=== PATIENT | female | born 2000 | race African-American/Black ===

== ENCOUNTER 2018-03-01 12:02 | Emergency (ER) | payer MEDICAID, OTHER ==
[~2018-03-01] VITALS: Ht 165.1 cm; Wt 59.0 kg
--- NOTE | 2018-03-01 12:15 | Emergency Room Report ---
History of Present Illness General Chief Complaint: Female Urogenital Problems Source: Patient Present Illness HPI 17-year-old female presents to the emergency department complaining of itchy, white/yellowish vaginal discharge 3 days. Patient also reports that she felt a burning pain inside of her labia and noticed to lesions, and her vaginal wall that look like they were scabbed. Patient reports recent unprotected intercourse proximally one week ago. Patient reports that she does have some suspicion of STDs. Patient denies pain, fevers, chills, nausea, vomiting, abdominal pain, swollen tender lymph nodes or joint pain. Patient denies external genital lesions or rashes. She denies . denies urinary frequency, urgency, dysuria or hematuria. Allergies: Coded Allergies: No Known Allergies (Unverified , 03/01/18) Patient History Past Medical History: see triage record Past Surgical History: none Pertinent Family History: none Now: No Reviewed Nursing Documentation: PMH: Agreed; PSxH: Agreed Nursing Documentation-PMH Past Medical History: No Stated History Hx Asthma: Yes Review of Systems All Other Systems: negative except mentioned in HPI Physical Exam Vital Signs Date Time Temp Pulse Resp B/P (MAP) Pulse Ox O2 Delivery O2 Flow Rate FiO2 03/01/18 12:05 98.8 64 16 104/62 100 Room Air 98.8 Sp02 EP Interpretation: reviewed, normal General Appearance: no apparent distress, alert, GCS 15, non-toxic Head: normocephalic, atraumatic Eyes: bilateral eye normal inspection, bilateral eye PERRL ENT: hearing grossly normal, normal voice Neck: full range of motion Respiratory: lungs clear, normal breath sounds, speaking full sentences Cardiovascular #1: regular rate, rhythm Gastrointestinal: non tender, soft Rectal: deferred Genitourinary: normal inspection, no CVA tenderness, adnexa normal, ext genitalia/vag normal, other - milky white/yellowish vaginal d/c noted, 3 small lesions in on the vaginal wall with what appears to be dry blood. Musculoskeletal: back normal, gait/station normal, normal range of motion, non- tender Neurologic: alert, oriented x3, responsive, motor strength/tone normal, sensory intact, speech normal, grossly normal Psychiatric: judgement/insight normal Skin: normal color, no rash, warm/dry, well hydrated Lymphatic: no adenopathy Medical Decision Making PA Attestation Dr. Alvarez is my supervising Physician whom patient management has been discussed with. Diagnostic Impression: Primary Impression: Vaginitis Qualified Codes: N76.0 - Acute vaginitis Additional Impression: Contact with or exposure to venereal diseases ER Course 17-year-old female presents to the emergency department complaining of itchy, white/yellowish vaginal discharge 3 days. Patient also reports that she felt a burning pain inside of her labia and noticed to lesions, and her vaginal wall that look like they were scabbed. Patient reports recent unprotected intercourse proximally one week ago. Patient reports that she does have some suspicion of STDs. Patient denies pain, fevers, chills, nausea, vomiting, abdominal pain, swollen tender lymph nodes or joint pain. Patient denies external genital lesions or rashes. She denies . denies urinary frequency, urgency, dysuria or hematuria. Ddx considered but are not limited to UTi , STI, G & C, trichomonas, Vaginitis , herpes cervicitis, bartholins gland cyst or cellulitis. Vital signs: are WNL, pt. is afebrile H&PE are most consistent with vaginitis and vaginal wall lacerations. ORDERS: - Wet mount Prep: few clue cells. -UA: unremarkable ED INTERVENTIONS: - Azithromycin 1g PO DISCHARGE: At this time pt. is stable for d/c to home. Will provide printed patient care instructions, and any necessary prescriptions. Care plan and follow up instructions have been discussed with the patient prior to discharge. Labs Test 03/01/18 12:40 Urine Color Yellow Urine Appearance Slightly cloudy Urine pH 6 (4.5-8.0) Urine Specific [place] 1.015 (1.005-1.035) Urine Protein 2+ (NEGATIVE) Urine Glucose (UA) Negative (NEGATIVE) Urine Ketones Negative (NEGATIVE) Urine Blood 2+ (NEGATIVE) Urine Nitrite Negative (NEGATIVE) Urine Bilirubin Negative (NEGATIVE) Urine Urobilinogen 1 MG/DL (0.0-1.0) Urine Leukocyte Esterase 2+ (NEGATIVE) Urine RBC 2-4 /HPF (0 - 2) Urine WBC 2-4 /HPF (0 - 2) Urine Squamous Epithelial Cells Moderate /LPF (NONE/OCC) Urine Bacteria Occasional /HPF (NONE) Urine HCG, Qualitative Negative (NEGATIVE) Last Vital Signs Date Time Temp Pulse Resp B/P (MAP) Pulse Ox O2 Delivery O2 Flow Rate FiO2 03/01/18 12:05 98.8 64 16 104/62 100 Room Air 98.8 Disposition: HOME, SELF-CARE Condition: Stable Scripts Doxycycline Hyclate* (VIBRAMYCIN*) 100 Mg Capsule 100 MG ORAL EVERY 12 HOURS for 7 Days, #14 CAP 0 Refills Prov: Melita Wilson 03/01/18 Metronidazole* (FLAGYL*) 500 Mg Tablet 500 MG ORAL BID for 5 Days, #10 TAB 0 Refills Prov: Melita Wilson 03/01/18 Patient Instructions: Metronidazole tablets or capsules, Vaginitis Additional Instructions: Take medications as directed. ! Do not drink alcohol while taking Flagyl/Metronidazole as this will cause a skin reaction. Follow up with a Primary Care Provider in 3-5 days, even if your symptoms have resolved. --Please review list of primary care clinics, if you do not already have a primary care provider - Please note that this Emergency Department Report was dictated using [employer] inspector technology software, occasionally this can lead to erroneous entry secondary to interpretation by the dictation equipment. Melita Wilson Mar 01, 2018 12:15
[2018-03-01 12:32] VITALS: BP 104/62
[2018-03-01] MEDS ORDERED: Azithromycin 250mg tab ORAL ONE (12:45)
[2018-03-01 12:51] LABS: APPEARANCE,URINE SLIGHTLY CLOUDY; BILIRUBIN, URINE NEGATIVE (NEGATIVE); GLUCOSE, URINE (UA) NEGATIVE (NEGATIVE); KETONES,URINE NEGATIVE (NEGATIVE); LEUKOCYTE ESTERASE ,URINE 2+ (NEGATIVE); NITRITE,URINE NEGATIVE (NEGATIVE); PH,URINE 6 (4.5-8.0); PROTEIN,URINE 2+ (NEGATIVE); UROBILINOGEN,URINE 1 MG/DL (0.0-1.0)
[2018-03-01 12:54] LABS: COLOR,URINE YELLOW
[2018-03-01] MEDS ORDERED: VIBRAMYCIN100 MG ORAL (13:19)
[2018-03-01] MEDS ORDERED: METRONIDAZOLE500 MG ORAL (13:19)
[2018-03-01 14:14] VITALS: BP 104/62
== END 2018-03-01 14:17 | disposition home or self-care (01) ==
LOC: EMR 12:20
DX: N76.0 Acute vaginitis (principal); Z20.2 Contact with and (suspected) exposure to infections with a predominantly sexual mode of transmission
CPT/HCPCS: 81003; 81025; 87210; 99283; Q0144